=== PATIENT | male | born 1990 | race American Indian/Alaskan Native ===

== ENCOUNTER 2021-03-10 21:53 | Emergency (ER) | payer OTHER ==
[2021-03-11 01:00] VITALS: BP 120/87
== END 2021-03-11 01:05 ==
LOC: EEVIPCON 21:53 → ED 21:53
DX: S00.81XA Abrasion of other part of head, initial encounter (principal); V49.49XA Driver injured in collision with other motor vehicles in traffic accident, initial encounter; Y92.410 Unspecified street and highway as the place of occurrence of the external cause; Y93.89 Activity, other specified; Y99.8 Other external cause status
CPT/HCPCS: 70450; 90471; 90715